=== PATIENT | female | born 1960 | race Caucasian/White ===

== ENCOUNTER 2023-04-09 13:39 | Outpatient (AMB) | payer OTHER, SELFPAY ==
--- NOTE | 2023-04-09 13:41 | A.OFFVIS_ITS ---
Intake Vital Signs 04/09/23 13:57 Height 5 ft 4 in Weight 163 lb 6 oz BMI 28.0 BP 116/60 Blood Pressure Location Lt brachial Position Sitting Respiration 18 Pulse 86 Pulse Source Pulse Oximeter Pulse Oximetry (%) 96 Oxygen Delivery Method Room Air Intake Visit Reasons: Back pain/confirmed Intake Note: Patient comes in for initial visit was referred by primary care. Reports pain 6.5/10. Allergies penicillin G benzathine Allergy (Unknown, Verified 04/09/23 13:52) Unknown HPI HPI Comments History of Present Illness Details Mildred is very pleasant 62 years old female who presents in my office with complains on pain in the lower back without radiation into bilateral lower extremity. The description of her pain is rather vague. She reports some sort of a pain in the lowest portion of the lumbar spine and in the sacral bone, this pain is intermittent. She also reports the pain in the upper portion of the upper lumbar and lower thoracic spine and this pain is also intermittent. However she reports that her pain is minimal in the morning and starts to get stronger when she gets up and starts to do her chores. She denies flexing for murphy and back flexing backwards aggravate her pain. She is able to sleep normally because in horizontal position her pain is non-existent. She can not do activities of daily living she can not take care of herself but she can not function normally. She reports that standing and walking usually aggravate her pain. Heat application make her pain slightly better. She reports no help from 10s unit. In terms of tissue damage she reports her pain is pulsing, throbbing, pounding, dull, hurting, heavy, tiring, and exhausting. She had multiple sessions of physical therapy in the past she went for chiropractic manipulation in the past last physical therapy was little bit more than 1 year ago and she reports no pain improvement neither on chiropractic manipulations nor on physical therapy. She was a subject of evaluation in [facility] where MRI was performed. The MRI dictated as below. She also reports that [facility] in the past did sacroiliac joint injections as well as injection into the L4-L5 and S1 bilateral facet joints. Reports no help from those injections. Her past medical history significant for heartburn and fatigue. Past surgical history significant for in year of 1999. She denies smoking cigarettes drinks 3 glasses of wine a week drinks 2 caffeinated beverages a day denies being addicted to the recreational drugs denies use of recreational drugs she tried cannabis in the past but it did not help her pain. She takes ibuprofen for pain control and it helps her pain minimally. [facility] Medical History (Updated 04/09/23 @ 14:47 by Justus Rebollar MD) DDD (degenerative disc disease), lumbar Headache Review of Systems Const All systems reviewed & are unremarkable except as noted in HPI and below ENT Reports Normal hearing present Neuro Reports Normal hearing present, Denies Abnormal speech present, Denies confusion and Denies Sensory deficit (Neuro) Psych Denies confusion Physical Exam Vital Signs: Last Vital Signs Pulse 86 04/09/23 13:57 Resp 18 04/09/23 13:57 BP 116/60 04/09/23 13:57 Pulse Ox 96 04/09/23 13:57 Oxygen Delivery Method Room Air 04/09/23 13:57 BMI result Body Mass Index 28.0 Const General: no acute distress; No confusion Orientation/consciousness: patient oriented x3 and No confusion Eyes General: appearance normal, both eyes and all related structures Pupils: Equal, round and reactive pupils present EOM: EOMs intact bilaterally Neck Neck: Yes full ROM Chest Chest palpation & inspection: normal inspection of the chest Resp Effort & Inspection: normal respiratory effort, able to speak in complete sentences, normal respiratory pattern, no audible wheezes and no cough Cardio Jugular venous distension: no JVD GI Inspection: Yes normal to inspection Back/Spine/Pelvis Other: Able to stand on bilateral tiptoes in bilateral heels without difficulty. Can lift the great toe in separation from the rest of the toes from the ground although with difficulty. Flexing forward and flexing backwards do not aggravate her pain however she seemed to have some discomfort in flexing b ackwards. Loading test bilateral aggravate her pain. Torrey test and 14 finger test are negative on exam. SLR is negative bilaterally. Medial and lateral rotation of the hip does not cause aggravation of the pain neither in the back nor in the groin. Reports no tenderness on palpation in paraspinal spinal region of the central lumbar spine. However reports tenderness on palpation in projection of the lower lumbar vertebra and sacral bone. Neuro General: patient oriented x3, gait normal and No confusion Cranial nerves: Yes CN's II-XII intact bilaterally, Yes Equal, round and reactive pupils present, Yes Normal hearing present and Yes Ability to bilaterally elevate shoulders present Speech: No Abnormal speech present Gait exam (Neuro): Normal gait present Motor exam (neuro): 5/5 motor strength present throughout Sensory Exam: No Sensory deficit (Neuro) Extrem General: No pedal edema Psych Speech and movement: Normal speech and movement present Affect: normal affect Attitude: cooperative Thought process: Normal thought process present Thought content: Normal thought content present Insight: Good insight present (Psych) Judgement: Good judgement present (Psych) Results Reviewed Results Reviewed: [facility] Accession Number : [id number] Patient Name : Mildred Ashford Date of : 1960 Date of Exam : 06/05/2016 Referring Physician : JARAD PIMENTEL [address] [place] [address] Exam : MR - LUMBAR SPINE (C-) CPT 82972 - Room Description : [facility] Espr 2 1.5 Technique : Sag T1, Sag3d SPACE, Sag STIR, Sag T2 reformat, Ax T2 reformat Final Report INDICATION: Left leg pain. Disc herniation. Sciatica. COMPARISON: Lumbar spine MRI, November 28, 2014 FINDINGS: 1.7 cm low T1, low T2, and subtly STIR hyperintense lesion is demonstrated in the left side of the L1 vertebral body. This does not appear significantly changed in size compared to previous examination. No other focal marrow lesions, with heterogeneous areas of fatty rests noted as well as degenerative endplate marrow signal changes and endplate osteophytes. There is subtle retrolisthesis of L5 on S1. Sagittal alignment is otherwise maintained. Vertebral body heights are maintained. There is disc desiccation at the L4-L5 and L5-S1 levels without significant loss of intervertebral disc height at L4-L5, and with subtle loss of intervertebral disc height at L5-S1. The visualized distal spinal cord and conus medullaris are normal. The conus medullaris terminates at approximately T12-L1. Cauda equina nerve roots appear normal. Paraspinal and prevertebral soft tissues are normal. L1-L2: No spinal canal or neural foraminal stenosis. L2-L3: No spinal canal or neural foraminal stenosis. L3-L4: No spinal canal or neural foraminal stenosis. L4-L5: Diffuse disc bulge with a small central protrusion which has an annular tear. The central protrusion is slightly smaller than on the previous examination. There is no significant narrowing of the spinal canal or neural foramina. L5-S1: Small central to left paracentral disc protrusion, which has decreased in size since the previous exam. No significant narrowing of the spinal canal. Minimal narrowing of the left lateral recess but no definite impingement of the traversing left S1 nerve root. There is mild facet arthrosis, and no significant narrowing of the neural foramina. IMPRESSION: Mild degenerative changes at the L4-L5 and L5-S1 levels. Disc protrusions have decreased in size since the previous examination, with no definite nerve root impingement. There is a nonspecific T1 hypointense and STIR hyperintense lesion in the L1 vertebral body which appears similar to the previous examination. Lack of change argues against an aggressive process. This may reflect an atypical hemangioma. Assessment & Plan Assessment & Plan (1) Spondylosis of lumbar region without myelopathy or radiculopathy: Code(s): M47.816 - Spondylosis without myelopathy or radiculopathy, lumbar region (2) Low back pain: Code(s): M54.50 - Low back pain, unspecified (3) Chronic pain syndrome: Code(s): G89.4 - Chronic pain syndrome Plan On the MRI of this patient most of the lumbar spine is benign. However in 2017 she had demonstrated 1.7 cm low T1, low T2, and subtly STIR hyperintense lesion is demonstrated in the left side of the L1 vertebral body. This does not appear significantly changed in size compared to previous examination. Mild degenerative changes at the L4-L5 and L5-S1 levels. Disc protrusions have decreased in size since the previous examination, with no definite nerve root impingement. There is a nonspecific T1 hypointense and STIR hyperintense lesion in the L1 vertebral body which appears similar to the previous examination. Lack of change argues against an aggressive process. This may reflect an atypical hemangioma. Those changes were observed in 2017. I offered this patient medial branch block L2-L3 L4 does ramus L5 in the attempt to alleviate her pain. However if this injection will not be working for her I feel more compelled now to send her for the repeat MRI in [facility]. Possibility exists that her mild nonspecific endplate degenerative changes since 2017 progressed and now she has overt Modic type 1 in Modic type 2 changes. This also will be demonstrated on the MRI. I will see this patient after the diagnostic injection as above. The patient was explained chronic opioid therapy briefly as well as SCS and I DDD were mentioned at the end of the conversation. Patient Instructions: I here by testify that I spent 62 minutes in conversation with this patient as well as evaluating her MRI, reading the MRI report, evaluating prior records from [facility], planning the care of this patient and organizing this note. Coding Level of Care Code New Pt Level 5 (01916) Diagnoses Spondylosis of lumbar region without myelopathy or radiculopathy M47.816 Low back pain M54.50 Chronic pain syndrome G89.4
[2023-04-09 13:57] VITALS: BP 116/60; PULSE 86; RESP 18; O2SAT 96; BMI 28.0
== END 2023-04-09 14:37 | disposition home or self-care (01) ==
PROVIDERS: PCP Internal Medicine; Referring Provider Nurse Practitioner Primary Care; Visit Provider Anesthesiology
DX: M47.816 Spondylosis without myelopathy or radiculopathy, lumbar region (principal); M54.50 Low back pain, unspecified; G89.4 Chronic pain syndrome
CPT/HCPCS: 99205

== ENCOUNTER → 2023-04-09 13:39 | Outpatient (BNVA) | payer OTHER, SELFPAY | PROVIDERS: PCP Internal Medicine; Referring Provider Nurse Practitioner Primary Care; Visit Provider Anesthesiology | DX: M47.816 Spondylosis without myelopathy or radiculopathy, lumbar region (principal); M54.50 Low back pain, unspecified; G89.4 Chronic pain syndrome | CPT/HCPCS: 99202 ==